=== PATIENT | male | born 1940 | race Caucasian/White ===

== ENCOUNTER 2020-03-19 08:39 | Emergency (ER) | payer OTHER ==
--- NOTE | 2020-03-19 09:52 | RAD REPORT ---
EXAM DESCRIPTION: US - Upper Ext Artery Uni Prasanna - 03/19/2020 9:37 am CLINICAL HISTORY: Left arm pain COMPARISON: None FINDINGS: No flow is visualized within the left radial artery. The proximal left common carotid, left subclavian, left axillary, left brachial and left ulnar arteri es demonstrate flow without significant stenosis/occlusion. IMPRESSION: No flow visualized within the left radial artery
[2020-03-19 10:22] LABS: Absolute Lymphocytes (CBC) 1.6 K/uL (0.7-4.9); Basophils % 0.7 % (0-1.3); Hematocrit 52.1 % (39.6-49.0); Lymphocytes % 22.8 % (15.3-44.8); MPV 9.8 fL (7.6-11.3); RBC Red Blood Cell Count 5.33 M/uL (4.33-5.43)
--- NOTE | 2020-03-19 10:27 | RAD REPORT ---
EXAM DESCRIPTION: RAD - C Spine Ap/Lat - 03/19/2020 9:55 am CLINICAL HISTORY: Neck pain FINDINGS: Bones are osteoporotic. Minimal posterior subluxation C3 on C4. 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 No fracture or dislocation
--- NOTE | 2020-03-19 10:28 | RAD REPORT ---
EXAM DESCRIPTION: RAD - Shoulder Left 2 View - 03/19/2020 9:55 am CLINICAL HISTORY: Left shoulder pain FINDINGS: No fracture or dislocation is seen. Moderate osteoarthritis involves the AC joint consist ing of osteophytes and joint space narrowing. Mild glenohumeral joint osteoarthritis. Bones are osteo porotic
[2020-03-19 10:40] LABS: BUN Blood Urea Nitrogen 14 mg/dL (7-18); Bicarbonate 27 mmol/L (21-32); Glucose Level 99 mg/dL (74-106); Potassium 4.3 mmol/L (3.5-5.1); Sodium Level 143 mmol/L (136-145); Troponin (Emerg Dept Use Only) < 0.02 ng/mL (0.0-0.045)
[2020-03-19] MEDS ORDERED: HEPARIN/D5W 25,000 UNIT/500 ML BAG IV ONE (10:47)
--- NOTE | 2020-03-19 10:49 | ER ---
Nurse's Notes [facility] Name: Yaya Bang Age: 79 yrs Sex: Male : 1940 Arrival Date: 03/19/2020 Time: 08:41 Bed 5 Private MD: Diagnosis: Left radial artery occlusion Presentation: 03/19 08:49 Ebola Screen: Patient denies travel to an Ebola-affected area in the 21 days before tw2 illness onset. Onset of symptoms was March 19, 2020. 08:54 Chief complaint: Spouse and/or significant other states: Left arm pain, starts at jl7 shoulder and radiates to left hand, described at pressure. Coronavirus screen: Client denies travel out of the [place] in the last 14 days. At this time, the client does not indicate any symptoms associated with coronavirus-19. Initial Sepsis Screen: Does the patient meet any 2 criteria? No. Patient's initial sepsis screen is negative. Does the patient have a suspected source of infection? No. Patient's initial sepsis screen is negative. Risk Assessment: Do you want to hurt yourself or someone else? Patient reports no desire to harm self or others. Care prior to arrival: None. 08:54 Method Of Arrival: Ambulatory 7 08:54 Acuity: JAIME 3 jl7 Triage Assessment: 08:57 General: Appears in no apparent distress. uncomfortable, Behavior is calm, cooperative. jl7 Pain: Complains of pain in left arm Quality of pain is described as pressure, Unable to use pain scale. Does not appear to understand pain scale. Neuro: Level of Consciousness is awake, alert, obeys commands, Oriented to person, place, time, situation. Cardiovascular: Denies chest pain, shortness of breath, Patient's skin is warm and dry. Respiratory: Airway is patent Respiratory effort is even, unlabored, Respiratory pattern is regular, symmetrical. GI: No signs and/or symptoms were reported involving the gastrointestinal system. Derm: Skin is pink, warm \T\ dry. Musculoskeletal: Range of motion: intact in all extremities. 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 - Social history:: Smoking status: Patient reports the use of cigarette tobacco products, smokes one pack cigarettes per day. - Family history:: not pertinent. - Hospitalizations: : No recent hospitalization is reported. Screenin:46 Abuse screen: Denies threats or abuse. Nutritional screening: No deficits noted. tw2 Tuberculosis screening: No symptoms or risk factors identified. Fall Risk Secondary diagnosis (15 points) impaired mobility. Assessment: 08:49 Reassessment: provider at bedside at this time. tw2 10:41 Reassessment: Patient appears in no apparent distress at this time. No changes from tw2 previously documented assessment. Patient and/or family updated on plan of care and expected duration. Pain level reassessed. Patient is alert, oriented x 3, equal unlabored respirations, skin warm/dry/pink. 11:35 Reassessment: Patient appears in no apparent distress at this time. No changes from tw2 previously documented assessment. Patient and/or family updated on plan of care and expected duration. Pain level reassessed. Patient is alert, oriented x 3, equal unlabored respirations, skin warm/dry/pink. 12:00 Reassessment: Patient appears in no apparent distress at this time. No changes from tw2 previously documented assessment. Patient and/or family updated on plan of care and expected duration. Pain level reassessed. Patient is alert, oriented x 3, equal unlabored respirations, skin warm/dry/pink. 13:05 Reassessment: Patient appears in no apparent distress at this time. No changes from tw2 previously documented assessment. Patient and/or family updated on plan of care and expected duration. Pain level reassessed. Patient is alert, oriented x 3, equal unlabored respirations, skin warm/dry/pink. Vital Signs: 08:54 BP 118 / 70; Pulse 58; Resp 17; Temp 97.9; Pulse Ox 99% ; Weight 83.01 kg; Height 5 ft. jl7 9 in. (175.26 cm); 10:40 BP 153 / 86; Pulse 54; Resp 17; Pulse Ox 99% on R/A; tw2 11:35 BP 147 / 74; Pulse 53; Resp 13; Pulse Ox 97% on R/A; tw2 12:00 BP 160 / 79; Pulse 52; Resp 17; Pulse Ox 99% ; tw2 13:05 BP 162 / 81; Pulse 51; Resp 17; Pulse Ox 98% on R/A; tw2 08:54 Body Mass Index 27.02 (83.01 kg, 175.26 cm) jl7 ED Course: 08:41 Patient arrived in ED. as 08:43 Iris Finley, RN is Primary Nurse. jl7 08:46 Arm band placed on. tw2 08:46 Bed in low position. Call light in reach. Adult w/ patient. Pulse ox on. NIBP on. tw2 08:47 Lonny Bush MD is Attending Physician. rn 08:55 Triage completed. jl7 09:37 Upper Ext Artery Uni Prasanna In Process Unspecified. EDMS 09:55 XRAY C Spine Ap/lat In Process Unspecified. EDMS 09:55 XRAY Shoulder LEFT 2 view In Process Unspecified. EDMS 10:14 Initial lab(s) drawn, by me, sent to lab. EKG done, by ED staff, reviewed by Lonny Bush MD. Inserted saline lock: 20 gauge in right antecubital area, using aseptic technique. Blood collected. 10:28 initiated a transfer with AMANDA Bradley from the [facility] Transfer [facility]. eb 10:[address] Orlando the CV surgeon diamond mounter for [facility] with Dr. Bush for eb patient transfer consultation. 10:44 connected the Hospitalist diamond mounter for [facility] with Dr. Bush for patient eb transfer consultation. 11:[address] Souza the emergency room doctor at [facility] with Dr. Bush for eb patient transfer consultation. 11:14 administrative approval given by AMANDA Bradley/ patient has been accepted to [facility] ER/ Dr. Souza has accepted the patient in transfer/ report to be called to [phone]. 11:56 Report given to CONENR Rubio at [facility] ER. tw2 13:27 No provider procedures requiring assistance completed. Patient transferred, IV remains jl7 in place. intact, No redness/swelling at site. Administered Medications: 10:37 Drug: Heparin (DVT/PE Drip) 18 units/kg/hr - (HEParin 42210 units, D5W 500 ml) tw2 {Co-Signature: gil (Iris Finley RN).} Route: IV; Rate: calculated rate; Site: right antecubital; 13:28 Follow up: Response: No adverse reaction; IV Status: Infusion continued upon transfer jl7 Outcome: 10:49 ER care complete, transfer ordered by . rn 13:27 Transferred by ground EMS to [facility], Transfer form completed. jl7 X-rays sent w/ patient. 13:27 Condition: stable 13:27 Discharge instructions given to patient, Instructed on the need for transfer, Demonstrated understanding of instructions. 13:29 Patient left the ED. jlVictoriano Signatures: Dispatcher [employer] Jaylyn Jorgensen Roman, MD MD rn Wise, Tara RN RN tw2 Iris Finley RN RN jl7 Clementine Davis RN7
--- NOTE | 2020-03-19 10:49 | EDPHYS ---
Physician Documentation [facility] Name: Yaya Bang Age: 79 yrs Sex: Male : 1940 Arrival Date: 03/19/2020 Time: 08:41 Bed 5 Private MD: ED Physician Lonny Bush HPI: 03/19 09:26 This 79 yrs old Male presents to ER via Ambulatory with complaints of Arm rn Pain. 09:26 The patient or guardian complains of pain. The complaints affect the anterior aspect of rn left shoulder, left bicep, left antecubital area and dorsal aspect of left forearm. Onset: The symptoms/episode began/occurred 3 day(s) ago. Modifying factors: The symptoms are alleviated by nothing. the symptoms are aggravated by nothing. Severity of symptoms: At their worst the symptoms were mild, in the emergency department the symptoms are unchanged. The patient has experienced similar episodes in the past. The patient has not recently seen a physician. Reports left arm pain, from shoulder to wrist, no trauma, has had this before, states has had similar pain before ever since left wrist fracture and surgery. No chest pain/sob. No neck pain. Feels tight. Not worse with movement or anything specific. denies focal weakness/numbness/tingling. . 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 - Social history:: Smoking status: Patient reports the use of cigarette tobacco products, smokes one pack cigarettes per day. - Family history:: not pertinent. - Hospitalizations: : No recent hospitalization is reported. ROS: 09:26 Constitutional: Negative for fever, chills, and weight loss, Eyes: Negative for injury, rn pain, redness, and discharge, Neck: Negative for injury, pain, and swelling, Cardiovascular: Negative for chest pain, palpitations, and edema, Respiratory: Negative for shortness of breath, cough, wheezing, and pleuritic chest pain, Abdomen/GI: Negative for abdominal pain, nausea, vomiting, diarrhea, and constipation, Back: Negative for injury and pain, MS/Extremity: Negative for injury and deformity, Skin: Negative for injury, rash, and discoloration, Neuro: Negative for headache, weakness, numbness, tingling, and seizure. Exam: 09:26 Constitutional: This is a well developed, well nourished patient who is awake, alert, rn and in no acute distress. Head/Face: Normocephalic, atraumatic. Neck: Supple, full range of motion without nuchal rigidity, or vertebral point tenderness. No Meningismus. Chest/axilla: Normal chest wall appearance and motion. Nontender with no deformity. No lesions are appreciated. Cardiovascular: Regular rate and rhythm. No pulse deficits. Respiratory: No increased work of breathing, no retractions or nasal flaring. Abdomen/GI: soft, non-tender Skin: Warm, dry MS/ Extremity: Full, normal range of motion. Equal circumference. Non-palpable left radial artery pulse Neuro: Awake and alert, GCS 15, oriented to person, place, time, and situation. Cranial nerves II-XII grossly intact. Motor strength 5/5 in all extremities. Sensory grossly intact. Cerebellar exam normal. Vital Signs: 08:54 BP 118 / 70; Pulse 58; Resp 17; Temp 97.9; Pulse Ox 99% ; Weight 83.01 kg; Height 5 ft. jl7 9 in. (175.26 cm); 10:40 BP 153 / 86; Pulse 54; Resp 17; Pulse Ox 99% on R/A; tw2 11:35 BP 147 / 74; Pulse 53; Resp 13; Pulse Ox 97% on R/A; tw2 12:00 BP 160 / 79; Pulse 52; Resp 17; Pulse Ox 99% ; tw2 13:05 BP 162 / 81; Pulse 51; Resp 17; Pulse Ox 98% on R/A; tw2 08:54 Body Mass Index 27.02 (83.01 kg, 175.26 cm) jl7 MDM: 08:47 Patient medically screened. rn 10:27 ED course: Pt with left radial artery occlusion, no palpable radial pulse and no flow rn on u/s. No recent procedure performed. Heparin ordered, and initiating transfer to [facility] given no vascular surgeon here. . 10:45 Differential diagnosis: radial artery occlusion, radiculopathy. Data reviewed: vital rn signs, nurses notes, lab test result(s), radiologic studies, ultrasound, and as a result, I will admit patient. Counseling: I had a detailed discussion with the patient and/or guardian regarding: the historical points, exam findings, and any diagnostic results supporting the discharge/admit diagnosis, lab results, radiology results, the need to transfer to another facility, for higher level of care, [facility] does not immediately have the required specialist. ED course: Accepted for transfer to [facility] for vascular consultation, anticoagulation, and recommendations. . 03/19 08:53 Order name: CBC with Diff; Complete Time: 10:27 rn 03/19 08:53 Order name: Basic Metabolic Panel; Complete Time: 10:43 rn 03/19 08:53 Order name: Troponin (emerg Dept Use Only); Complete Time: 10:43 rn 03/19 13:00 Order name: SARS-COV-2 RT PCR EDMS 03/19 08:53 Order name: IV Start; Complete Time: 10:14 rn 03/19 08:54 Order name: XRAY C Spine Ap/lat; Complete Time: 10:29 rn 03/19 08:54 Order name: XRAY Shoulder LEFT 2 view; Complete Time: 10:29 rn 03/19 09:10 Order name: Upper Ext Artery Uni Prasanna; Complete Time: 10:19 EDMS 03/19 09:26 Order name: EKG; Complete Time: 09:26 rn 03/19 09:26 Order name: EKG - Nurse/Tech; Complete Time: 10:14 rn Administered Medications: 10:37 Drug: Heparin (DVT/PE Drip) 18 units/kg/hr - (HEParin 66105 units, D5W 500 ml) tw2 {Co-Signature: jl7 (Iris Finley RN).} Route: IV; Rate: calculated rate; Site: right antecubital; 13:28 Follow up: Response: No adverse reaction; IV Status: Infusion continued upon transfer jl7 Disposition: 03/19/20 10:49 Transfer ordered to [facility]. Diagnosis is Left radial artery occlusion. - Reason for transfer: Higher level of care. - Accepting physician is . - Condition is Stable. - Problem is new. - Symptoms have improved. Signatures: Dispatcher [employer] [facility] Lonny Bush MD MD rn Marilee Proctor RN RN tw2 Iris Finley RN RN jl7 Iris Finley RN jl7 Corrections: (The following items were deleted from the chart) 09:10 08:53 Lower Extremity Artery Uni Ltd+US.RAD.BRZ ordered. [facility] EDWV 10:20 09:26 Constitutional: This is a well developed, well nourished patient who is awake, rn alert, and in no acute distress. Head/Face: Normocephalic, atraumatic. Neck: Supple, full range of motion without nuchal rigidity, or vertebral point tenderness. No Meningismus. Chest/axilla: Normal chest wall appearance and motion. Nontender with no deformity. No lesions are appreciated. Cardiovascular: Regular rate and rhythm. No pulse deficits. Respiratory: No increased work of breathing, no retractions or nasal flaring. Abdomen/GI: soft, non-tender Skin: Warm, dry MS/ Extremity: Pulses equal, no cyanosis. Neurovascular intact. Full, normal range of motion. Equal circumference. Neuro: Awake and alert, GCS 15, oriented to person, place, time, and situation. Cranial nerves II-XII grossly intact. Motor strength 5/5 in all extremities. Sensory grossly intact. Cerebellar exam normal. rn 12:12 11:08 CORONAVIRUS+MR.LAB.BRZ ordered. [facility] EDMS 13:29 10:49 03/19/2020 10:49 Transfer ordered to [facility]. jl7 Diagnosis is Left radial artery occlusion. Reason for transfer: Higher level of care. Accepting physician is . Condition is Stable. Problem is new. Symptoms have improved. rn
[2020-03-20 21:55] VITALS: TEMP 97.9
[2020-03-20 22:01] VITALS: BP 162/81; O2SAT 98
== END 2020-03-19 13:29 | disposition short-term general hospital (02) ==
LOC: ER 08:39
DX: I70.298 Other atherosclerosis of native arteries of extremities, other extremity (principal); Z20.828 Contact with and (suspected) exposure to other viral communicable diseases; F17.210 Nicotine dependence, cigarettes, uncomplicated; I10 Essential (primary) hypertension; E78.00 Pure hypercholesterolemia, unspecified; Z85.51 Personal history of malignant neoplasm of bladder; Z95.1 Presence of aortocoronary bypass graft
CPT/HCPCS: 96365; 85025; 80048; 36415; 84484; 72040; 73030; 93931; 99285; 96366; U0003; J1644